=== PATIENT | male | born 1990 | race Caucasian/White ===

== ENCOUNTER 2016-11-15 11:28 | Emergency (ER) | payer SELFPAY ==
[~2016-11-15] VITALS: Ht 182.9 cm; Wt 95.2 kg
[2016-11-15 13:14] VITALS: BP 139/88
== END 2016-11-15 13:14 | disposition home or self-care (01) ==
LOC: ED 11:28
DX: S46.911A Strain of unspecified muscle, fascia and tendon at shoulder and upper arm level, right arm, initial encounter (principal); G89.29 Other chronic pain; M19.90 Unspecified osteoarthritis, unspecified site; Y93.67 Activity, basketball; Y92.89 Other specified places as the place of occurrence of the external cause; Y99.8 Other external cause status

== ENCOUNTER 2017-01-22 09:27 | Emergency (ER) | payer SELFPAY ==
[~2017-01-22] VITALS: Ht 182.9 cm; Wt 94.8 kg
[2017-01-22 09:33] VITALS: BP 143/81
== END 2017-01-22 10:58 | disposition home or self-care (01) ==
LOC: ED 09:27
DX: G89.29 Other chronic pain (principal); M54.5 Low back pain; F43.10 Post-traumatic stress disorder, unspecified; F90.9 Attention-deficit hyperactivity disorder, unspecified type; F41.9 Anxiety disorder, unspecified; Z88.0 Allergy status to penicillin; Z88.5 Allergy status to narcotic agent; Z88.6 Allergy status to analgesic agent; V89.2XXA Person injured in unspecified motor-vehicle accident, traffic, initial encounter; W22.10XA Striking against or struck by unspecified automobile airbag, initial encounter; Y93.89 Activity, other specified; Y99.8 Other external cause status; Y92.89 Other specified places as the place of occurrence of the external cause

== ENCOUNTER 2017-04-05 08:45 | Emergency (ER) | payer SELFPAY ==
[2017-04-05 09:52] VITALS: BP 142/99
== END 2017-04-05 09:52 | disposition home or self-care (01) ==
LOC: ED 08:45
DX: L23.9 Allergic contact dermatitis, unspecified cause (principal); Z88.0 Allergy status to penicillin; Z88.5 Allergy status to narcotic agent; Z88.6 Allergy status to analgesic agent; F41.9 Anxiety disorder, unspecified
CPT/HCPCS: J7512; Q0163

== ENCOUNTER 2017-05-03 01:10 | Emergency (ER) | payer SELFPAY ==
[2017-05-03 02:03] VITALS: BP 143/99
== END 2017-05-03 02:03 | disposition home or self-care (01) ==
LOC: ED 01:10
DX: M25.511 Pain in right shoulder (principal); F41.9 Anxiety disorder, unspecified; Z88.0 Allergy status to penicillin; Z88.5 Allergy status to narcotic agent; Z88.6 Allergy status to analgesic agent
CPT/HCPCS: J3010

== ENCOUNTER 2017-11-03 08:48 | Emergency (ER) | payer SELFPAY ==
[~2017-11-03] VITALS: Ht 182.9 cm; Wt 96.6 kg
[2017-11-03 08:52] VITALS: Ht 182.9 cm; Wt 96.6 kg
[2017-11-03 09:27] LABS: BASOPHIL % 0.3 % (0-2); PLATELET COUNT 294 x10^3mcL (130-400)
[2017-11-03 09:35] LABS: CALCIUM 9.4 mg/dL (8.5-10.1); CARBON DIOXIDE 29.2 mmol/L (21-32); CHLORIDE SERUM 105 mmol/L (98-107); CREATININE SERUM 0.9 mg/dL (0.7-1.3); GFR1 > 60 mL/min; GLUCOSE SERUM 116 mg/dL (74-106); POTASSIUM SERUM 4.1 mmol/L (3.5-5.1); SODIUM SERUM 142 mmol/L (136-145)
[2017-11-03 09:40] LABS: ALBUMIN 4.1 g/dL (3.4-5.0); ALKALINE PHOSPHATASE 70 U/L (46-116); ALT/SGPT 156 U/L (16-63); AMYLASE 44 U/L (25-115); AST/SGOT 277 U/L (15-37); BILIRUBIN TOTAL 0.4 mg/dL (0.20-1.00); LIPASE 177 IU/L (73-393)
[2017-11-03 09:41] LABS: TOTAL PROTEIN, SERUM 8.5 g/dL (6.4-8.2)
[2017-11-03 11:10] VITALS: BP 132/74
== END 2017-11-03 11:10 | disposition home or self-care (01) ==
LOC: ED 08:48
PROVIDERS: Emergency Medicine
DX: R10.13 Epigastric pain (principal); R11.10 Vomiting, unspecified; Z88.0 Allergy status to penicillin; Z88.5 Allergy status to narcotic agent; Z88.6 Allergy status to analgesic agent
CPT/HCPCS: 83880; J1630; J2405; J7030

== ENCOUNTER 2017-12-18 09:39 | Emergency (ER) | payer SELFPAY ==
[~2017-12-18] VITALS: Ht 182.9 cm; Wt 95.9 kg
[2017-12-18 09:46] VITALS: Ht 182.9 cm; Wt 95.9 kg
[2017-12-18 10:50] LABS: BASOPHIL % 0.3 % (0-2); PLATELET COUNT 279 x10^3mcL (130-400); RED CELL DISTRIBUTION WIDTH 13.1 % (11.5-14.5)
[2017-12-18 11:00] LABS: CALCIUM 8.7 mg/dL (8.5-10.1); CARBON DIOXIDE 28.9 mmol/L (21-32); CHLORIDE SERUM 105 mmol/L (98-107); CREATININE SERUM 0.9 mg/dL (0.7-1.3); GFR1 > 60 mL/min; GLUCOSE SERUM 102 mg/dL (74-106); POTASSIUM SERUM 4.2 mmol/L (3.5-5.1); SODIUM SERUM 141 mmol/L (136-145)
[2017-12-18 11:04] LABS: ALBUMIN 3.7 g/dL (3.4-5.0); ALKALINE PHOSPHATASE 59 U/L (46-116); ALT/SGPT 33 U/L (16-63); AMYLASE 40 U/L (25-115); AST/SGOT 20 U/L (15-37); BILIRUBIN TOTAL 0.28 mg/dL (0.20-1.00); LIPASE 174 IU/L (73-393); TOTAL PROTEIN, SERUM 7.1 g/dL (6.4-8.2)
[2017-12-18 11:09] LABS: microscopic required? NO
[2017-12-18 11:18] LABS: UA SPECIFIC GRAVITY 1.015 (1.005-1.035); urine erythrocyte NEGATIVE (NEGATIVE)
[2017-12-18 11:54] LABS: AMPHETAMINE QUAL UR NONE DETECTED (See below)
[2017-12-18 11:55] VITALS: BP 126/73
== END 2017-12-18 11:55 | disposition left against medical advice (07) ==
LOC: ED 09:39
PROVIDERS: Emergency Medicine
DX: R11.2 Nausea with vomiting, unspecified (principal); R10.9 Unspecified abdominal pain; F43.10 Post-traumatic stress disorder, unspecified; F41.9 Anxiety disorder, unspecified; G89.29 Other chronic pain; M54.5 Low back pain; F17.210 Nicotine dependence, cigarettes, uncomplicated; Z88.0 Allergy status to penicillin; Z88.5 Allergy status to narcotic agent; Z88.6 Allergy status to analgesic agent
CPT/HCPCS: J1630; J2060; J7030; Q0092

== ENCOUNTER 2018-03-01 09:26 | Emergency (ER) | payer SELFPAY ==
[~2018-03-01] VITALS: Ht 182.9 cm; Wt 108.4 kg
[2018-03-01 09:36] VITALS: Ht 182.9 cm; Wt 108.4 kg
[2018-03-01 10:35] LABS: BASOPHIL % 0.3 % (0-2); PLATELET COUNT 301 x10^3mcL (130-400); RED CELL DISTRIBUTION WIDTH 12.7 % (11.5-14.5)
[2018-03-01 10:37] LABS: CALCIUM 9.3 mg/dL (8.5-10.1); CARBON DIOXIDE 26.6 mmol/L (21-32); CHLORIDE SERUM 104 mmol/L (98-107); CREATININE SERUM 0.9 mg/dL (0.7-1.3); GFR1 > 60 mL/min; GLUCOSE SERUM 109 mg/dL (74-106); POTASSIUM SERUM 3.7 mmol/L (3.5-5.1); SODIUM SERUM 140 mmol/L (136-145)
[2018-03-01 10:42] LABS: ALBUMIN 4.2 g/dL (3.4-5.0); ALKALINE PHOSPHATASE 62 U/L (46-116); ALT/SGPT 37 U/L (16-63); AST/SGOT 18 U/L (15-37); BILIRUBIN TOTAL 0.44 mg/dL (0.20-1.00); LIPASE 179 IU/L (73-393)
[2018-03-01 10:54] LABS: TOTAL PROTEIN, SERUM 8.5 g/dL (6.4-8.2)
[2018-03-01 12:50] VITALS: BP 131/60
== END 2018-03-01 12:50 | disposition home or self-care (01) ==
LOC: ED 09:26
PROVIDERS: Emergency Medicine
DX: R11.2 Nausea with vomiting, unspecified (principal); R10.9 Unspecified abdominal pain; R19.7 Diarrhea, unspecified; F90.9 Attention-deficit hyperactivity disorder, unspecified type; F41.9 Anxiety disorder, unspecified; F43.10 Post-traumatic stress disorder, unspecified; Z88.0 Allergy status to penicillin; Z88.5 Allergy status to narcotic agent; Z88.6 Allergy status to analgesic agent; Z98.890 Other specified postprocedural states
CPT/HCPCS: J1200; J1630; J2550; J7030; Q0092

== ENCOUNTER 2018-03-19 09:33 | Emergency (ER) | payer SELFPAY ==
[~2018-03-19] VITALS: Ht 182.9 cm; Wt 92.5 kg
[2018-03-19 09:36] VITALS: Ht 182.9 cm; Wt 92.5 kg
[2018-03-19 10:42] LABS: BASOPHIL % 0.1 % (0-2); PLATELET COUNT 317 x10^3mcL (130-400); RED CELL DISTRIBUTION WIDTH 12.2 % (11.5-14.5)
[2018-03-19 10:57] LABS: CALCIUM 9.4 mg/dL (8.5-10.1); CARBON DIOXIDE 27.9 mmol/L (21-32); CHLORIDE SERUM 106 mmol/L (98-107); GFR1 > 60 mL/min; GLUCOSE SERUM 121 mg/dL (74-106); POTASSIUM SERUM 4.5 mmol/L (3.5-5.1); SODIUM SERUM 142 mmol/L (136-145)
[2018-03-19 11:02] LABS: ALBUMIN 4.3 g/dL (3.4-5.0); ALKALINE PHOSPHATASE 61 U/L (46-116); ALT/SGPT 50 U/L (16-63); AST/SGOT 23 U/L (15-37); LIPASE 180 IU/L (73-393)
[2018-03-19 11:03] LABS: TOTAL PROTEIN, SERUM 8.4 g/dL (6.4-8.2)
[2018-03-19 11:51] VITALS: BP 134/82
== END 2018-03-19 12:04 | disposition home or self-care (01) ==
LOC: ED 09:33
PROVIDERS: Emergency Medicine
DX: K52.9 Noninfective gastroenteritis and colitis, unspecified (principal); K31.89 Other diseases of stomach and duodenum; R11.2 Nausea with vomiting, unspecified; F41.9 Anxiety disorder, unspecified; F90.9 Attention-deficit hyperactivity disorder, unspecified type; Z88.0 Allergy status to penicillin; Z88.5 Allergy status to narcotic agent; Z88.6 Allergy status to analgesic agent
CPT/HCPCS: J1200; J2060; J2765; J7030; Q0162

== ENCOUNTER 2018-03-21 08:05 | Emergency (ER) | payer SELFPAY ==
[~2018-03-21] VITALS: Ht 182.9 cm; Wt 90.7 kg
[2018-03-21 08:13] VITALS: Ht 182.9 cm; Wt 90.7 kg
[2018-03-21 11:05] VITALS: BP 144/90
== END 2018-03-21 11:05 | disposition home or self-care (01) ==
LOC: ED 08:05
DX: F12.929 Cannabis use, unspecified with intoxication, unspecified (principal); F41.9 Anxiety disorder, unspecified; F43.10 Post-traumatic stress disorder, unspecified; Z88.0 Allergy status to penicillin; Z88.5 Allergy status to narcotic agent; Z88.6 Allergy status to analgesic agent; F90.9 Attention-deficit hyperactivity disorder, unspecified type; Z98.890 Other specified postprocedural states
CPT/HCPCS: J1630; J2060; J3490; J7030

== ENCOUNTER 2018-05-13 07:25 | Emergency (ER) | payer SELFPAY ==
[~2018-05-13] VITALS: Ht 182.9 cm; Wt 92.6 kg
[2018-05-13 07:35] VITALS: Ht 182.9 cm; Wt 92.6 kg
[2018-05-13 08:49] LABS: BASOPHIL % 0.3 % (0-2); PLATELET COUNT 294 x10^3mcL (130-400); RED CELL DISTRIBUTION WIDTH 13.4 % (11.5-14.5)
[2018-05-13 08:53] LABS: microscopic required? NO
[2018-05-13 09:03] LABS: UA SPECIFIC GRAVITY 1.015 (1.005-1.035); urine erythrocyte NEGATIVE (NEGATIVE)
[2018-05-13 09:26] LABS: CARBON DIOXIDE 29.2 mmol/L (21-32); CHLORIDE SERUM 105 mmol/L (98-107); CREATININE SERUM 0.9 mg/dL (0.7-1.3); GFR1 > 60 mL/min; GLUCOSE SERUM 117 mg/dL (74-106); POTASSIUM SERUM 4.2 mmol/L (3.5-5.1); SODIUM SERUM 142 mmol/L (136-145)
[2018-05-13 09:30] LABS: ALBUMIN 4.1 g/dL (3.4-5.0); ALKALINE PHOSPHATASE 61 U/L (46-116); ALT/SGPT 34 U/L (16-63); AST/SGOT 15 U/L (15-37); BILIRUBIN TOTAL 0.37 mg/dL (0.20-1.00); LIPASE 197 IU/L (73-393); TOTAL PROTEIN, SERUM 7.8 g/dL (6.4-8.2)
[2018-05-13 10:24] VITALS: BP 120/89
== END 2018-05-13 10:56 | disposition home or self-care (01) ==
LOC: ED 07:25
PROVIDERS: Emergency Medicine
DX: R10.13 Epigastric pain (principal); F12.929 Cannabis use, unspecified with intoxication, unspecified; F43.10 Post-traumatic stress disorder, unspecified; F90.9 Attention-deficit hyperactivity disorder, unspecified type; F41.9 Anxiety disorder, unspecified; Z88.0 Allergy status to penicillin; Z88.5 Allergy status to narcotic agent; Z88.6 Allergy status to analgesic agent; Z98.890 Other specified postprocedural states
CPT/HCPCS: J1630; J2060; J3490; J7030

== ENCOUNTER 2018-07-05 07:50 | Emergency (ER) | payer MEDICAID ==
[~2018-07-05] VITALS: Ht 182.9 cm; Wt 92.5 kg
[2018-07-05 07:56] VITALS: Ht 182.9 cm; Wt 92.5 kg
[2018-07-05 09:41] LABS: BASOPHIL % 0.7 % (0-2); PLATELET COUNT 238 x10^3mcL (130-400); RED CELL DISTRIBUTION WIDTH 14.4 % (11.5-14.5)
[2018-07-05 09:58] LABS: CARBON DIOXIDE 26.4 mmol/L (21-32); CHLORIDE SERUM 106 mmol/L (98-107); GFR1 > 60 mL/min; GLUCOSE SERUM 125 mg/dL (74-106); POTASSIUM SERUM 4.5 mmol/L (3.5-5.1); SODIUM SERUM 141 mmol/L (136-145)
[2018-07-05 10:06] LABS: ALKALINE PHOSPHATASE 55 U/L (46-116); ALT/SGPT 51 U/L (16-63); AMYLASE 42 U/L (25-115); AST/SGOT 32 U/L (15-37); BILIRUBIN TOTAL 0.3 mg/dL (0.20-1.00); LIPASE 140 IU/L (73-393); TOTAL PROTEIN, SERUM 7.8 g/dL (6.4-8.2)
[2018-07-05 10:31] LABS: microscopic required? NO
[2018-07-05 10:37] LABS: UA SPECIFIC GRAVITY 1.015 (1.005-1.035); urine erythrocyte NEGATIVE (NEGATIVE)
[2018-07-05 10:51] LABS: AMPHETAMINE QUAL UR NONE DETECTED (See below)
[2018-07-05 12:05] VITALS: BP 132/74
== END 2018-07-05 12:05 | disposition home or self-care (01) ==
LOC: ED 07:50
PROVIDERS: Emergency Medicine
DX: F12.988 Cannabis use, unspecified with other cannabis-induced disorder (principal); F43.10 Post-traumatic stress disorder, unspecified; F90.9 Attention-deficit hyperactivity disorder, unspecified type; G89.29 Other chronic pain; M51.26 Other intervertebral disc displacement, lumbar region; Z88.0 Allergy status to penicillin; Z88.5 Allergy status to narcotic agent; Z88.6 Allergy status to analgesic agent; Z98.890 Other specified postprocedural states
CPT/HCPCS: J1630; J2060; J7030

== ENCOUNTER 2018-12-08 09:23 | Emergency (ER) | payer SELFPAY ==
[~2018-12-08] VITALS: Ht 182.9 cm; Wt 85.7 kg
[2018-12-08 09:31] VITALS: Ht 182.9 cm; Wt 85.7 kg
[2018-12-08 10:05] VITALS: BP 152/102
== END 2018-12-08 10:05 | disposition home or self-care (01) ==
LOC: ED 09:23
DX: S39.012A Strain of muscle, fascia and tendon of lower back, initial encounter (principal); X58.XXXA Exposure to other specified factors, initial encounter; Y93.89 Activity, other specified; Y92.89 Other specified places as the place of occurrence of the external cause; Y99.8 Other external cause status

== ENCOUNTER 2019-06-17 08:09 | Emergency (ER) | payer MEDICAID ==
[~2019-06-17] VITALS: Ht 182.9 cm; Wt 84.8 kg
[2019-06-17 08:21] VITALS: Ht 182.9 cm; Wt 84.8 kg
[2019-06-17 09:00] VITALS: BP 131/98
== END 2019-06-17 09:00 | disposition home or self-care (01) ==
LOC: ED 08:09
DX: M54.42 Lumbago with sciatica, left side (principal); Z88.0 Allergy status to penicillin; Z88.6 Allergy status to analgesic agent; Z88.5 Allergy status to narcotic agent

== ENCOUNTER 2019-08-07 14:28 | Emergency (ER) | payer OTHER ==
[~2019-08-07] VITALS: Ht 182.9 cm; Wt 83.5 kg
[2019-08-07 14:33] VITALS: Ht 182.9 cm; Wt 83.5 kg
[2019-08-07 15:38] VITALS: BP 125/71
== END 2019-08-07 15:38 | disposition home or self-care (01) ==
LOC: ED 14:28
DX: S39.012A Strain of muscle, fascia and tendon of lower back, initial encounter (principal); M51.36 Other intervertebral disc degeneration, lumbar region; Z98.890 Other specified postprocedural states; Z88.0 Allergy status to penicillin; Z88.6 Allergy status to analgesic agent; Z88.5 Allergy status to narcotic agent; X50.0XXA Overexertion from strenuous movement or load, initial encounter; Y93.89 Activity, other specified; Y92.89 Other specified places as the place of occurrence of the external cause; Y99.0 Civilian activity done for income or pay

== ENCOUNTER 2019-09-19 14:51 | Emergency (ER) | payer OTHER ==
[~2019-09-19] VITALS: Ht 182.9 cm; Wt 83.9 kg
[2019-09-19 14:59] VITALS: Ht 182.9 cm; Wt 83.9 kg
[2019-09-19 15:34] VITALS: BP 137/90
== END 2019-09-19 15:34 | disposition home or self-care (01) ==
LOC: ED 14:51
DX: M54.5 Low back pain (principal); G89.29 Other chronic pain; Z88.0 Allergy status to penicillin; Z88.5 Allergy status to narcotic agent; Z88.6 Allergy status to analgesic agent

== ENCOUNTER 2020-07-04 17:27 | Emergency (ER) | payer OTHER ==
[~2020-07-04] VITALS: Ht 182.9 cm; Wt 83.9 kg
[2020-07-04 17:34] VITALS: Ht 182.9 cm; Wt 83.9 kg
[2020-07-04 18:23] VITALS: BP 141/91
== END 2020-07-04 18:23 | disposition home or self-care (01) ==
LOC: ED 17:27
DX: M26.602 Left temporomandibular joint disorder, unspecified (principal); Z88.0 Allergy status to penicillin; Z88.5 Allergy status to narcotic agent; Z88.6 Allergy status to analgesic agent; Z98.890 Other specified postprocedural states

== ENCOUNTER 2020-07-08 15:58 | Emergency (ER) | payer OTHER ==
[~2020-07-08] VITALS: Ht 182.9 cm; Wt 87.1 kg
[2020-07-08 16:12] VITALS: BP 156/89; Ht 182.9 cm; Wt 87.1 kg
[2020-07-08] MEDS ORDERED: ULTRAM50 MG PO (16:41)
[2020-07-08] MEDS ORDERED: [UNRECOGNIZED DRUG - OTHER] (16:41)
== END 2020-07-08 16:53 | disposition home or self-care (01) ==
LOC: ED 15:58
DX: M26.602 Left temporomandibular joint disorder, unspecified (principal); K08.89 Other specified disorders of teeth and supporting structures; G89.29 Other chronic pain; Z88.0 Allergy status to penicillin; Z88.5 Allergy status to narcotic agent; Z88.6 Allergy status to analgesic agent